=== PATIENT | female | born 1970 | race Caucasian/White ===

== ENCOUNTER 2016-07-10 11:36 | Inpatient (IN) | payer OTHER ==
[~2016-07-10] VITALS: Ht 167.6 cm; Wt 107.0 kg
[2016-07-10] MEDS ORDERED: SODIUM CHLORIDE FLUSH 10ML SYR IVF ONE (12:00)
[2016-07-10 12:54] LABS: BLOOD UREA NITROGEN 13 mg/dL (7-18)
[2016-07-10] MEDS ORDERED: ENOXAPARIN 40 MG/0.4 ML SQ SCH (14:30)
[2016-07-10] MEDS ORDERED: SENNA/DOCUSATE TABLET PO PRN (14:30)
[2016-07-10] MEDS ORDERED: LABETALOL 5MG/ML, 20ML IV PRN (14:30)
[2016-07-10] MEDS ORDERED: ACETAMINOPHEN 650 MG/20.3 ML UDC PO PRN (14:30)
[2016-07-10] MEDS ORDERED: BISACODYL 10 MG SUPP PR PRN (14:30)
[2016-07-10 14:48] LABS: ASPARTATE AMINO TRANSFERASE 15 U/L (15-37)
[2016-07-10 15:05] LABS: TOTAL IRON BINDING CAPACITY 492 mcg/dL (250-450)
[2016-07-10 16:16] VITALS: BP 122/80
[2016-07-10] MEDS: FERROUS SULFATE 325 MG TABLET PO SCH (17:51)
[2016-07-10 19:26] VITALS: BP 118/76
[2016-07-10] MEDS ORDERED: SIMVASTATIN 20 MG TABLET PO SCH (21:00)
[2016-07-11 01:27] VITALS: BP 111/73
[2016-07-11 05:37] LABS: ASPARTATE AMINO TRANSFERASE 18 U/L (15-37); BLOOD UREA NITROGEN 11 mg/dL (7-18)
[2016-07-11] MEDS ORDERED: ASPIRIN 81 MG TABLET EC PO SCH (06:00)
[2016-07-11 06:56] VITALS: BP 112/73
[2016-07-11] MEDS: FERROUS SULFATE 325 MG TABLET PO SCH (09:35)
[2016-07-11 12:15] VITALS: BP 119/76
[2016-07-11] MEDS ORDERED: ASPI-621 PO (14:42)
[2016-07-11] MEDS ORDERED: SIMV20TA3 PO (14:42)
[2016-07-11] MEDS ORDERED: FERR325T20 PO (14:42)
== END 2016-07-11 16:30 | disposition home or self-care (01) | DRG 66 ==
LOC: ED 13:00 → EDIP 13:28 → 4EST 15:21
PROVIDERS: ADMIT Internal Medicine; ATTEND Internal Medicine
DX: I63.9 Cerebral infarction, unspecified (principal); G43.109 Migraine with aura, not intractable, without status migrainosus; E66.9 Obesity, unspecified; Z80.6 Family history of leukemia; H53.462 Homonymous bilateral field defects, left side; D50.9 Iron deficiency anemia, unspecified; D75.89 Other specified diseases of blood and blood-forming organs; H53.47 Heteronymous bilateral field defects; Z79.82 Long term (current) use of aspirin; H54.62 Unqualified visual loss, left eye, normal vision right eye; Z68.38 Body mass index [BMI] 38.0-38.9, adult
CPT/HCPCS: 36415; 80053; 80061; 83540; 83550; 85025; 85610; 85730; 93005; 93306; 93880; J1650; 92523-GN

== ENCOUNTER → 2017-01-22 | Outpatient (CLI) | payer OTHER ==
[~2017-01-22] MED LIST: ASPI-621 PO; FERR325T18 PO; SIMV20TA3 PO
[2017-01-22 10:42] LABS: HEMATOCRIT 42.5 % (34.6-47.8); HEMOGLOBIN 14.3 g/dL (11.7-16.4); WHITE BLOOD COUNT 8.4 x10^3/uL (3.4-10)
[2017-01-22 10:55] LABS: ASPARTATE AMINO TRANSFERASE 14 U/L (15-37); BLOOD UREA NITROGEN 11 mg/dL (7-18)
== END | disposition home or self-care (01) ==
LOC: LAB 10:24
PROVIDERS: ATTEND Psychiatry & Neurology Neurology
DX: H47.333 Pseudopapilledema of optic disc, bilateral (principal); H50.15 Alternating exotropia; I63.331 Cerebral infarction due to thrombosis of right posterior cerebral artery; H53.462 Homonymous bilateral field defects, left side
CPT/HCPCS: 36415; 80053; 85025